=== PATIENT | male | born 1975 | race Caucasian/White ===

== ENCOUNTER 2022-07-21 18:31 | Emergency (ER) | payer OTHER, SELFPAY ==
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
[2022-07-21 18:36] VITALS: BP 134/77; PULSE 93; RESP 18; TEMP 36.5; O2SAT 97
--- NOTE | 2022-07-21 18:46 | PC.NURSE ---
Pt declined visual acuity testing at this time. Reports he cannot see out of his L eye and when he removes this pressure dressing from his head he cannot see out of either eye
== END 2022-07-21 19:07 | disposition home or self-care (01) ==
PROVIDERS: Emergency Provider Nurse Practitioner Family
DX: S05.02XA Injury of conjunctiva and corneal abrasion without foreign body, left eye, initial encounter (principal); X58.XXXA Exposure to other specified factors, initial encounter
CPT/HCPCS: 99213; A9270; G0463

== ENCOUNTER 2022-10-05 21:19 | Emergency (ER) | payer OTHER, SELFPAY ==
[2022-10-05 22:07] VITALS: BP 185/106; PULSE 94; RESP 16; TEMP 36.9; O2SAT 97
[2022-10-06 00:03] VITALS: BP 169/93; PULSE 81; RESP 18; O2SAT 96
--- NOTE | 2022-10-06 01:37 | PC.NURSE ---
0135 pt discovered gone from the waiting room when called back to a room.
== END 2022-10-06 01:35 | disposition left against medical advice (07) ==
DX: M79.89 Other specified soft tissue disorders (principal)
CPT/HCPCS: 99199

== ENCOUNTER 2023-07-01 05:41 | Emergency (ER) | payer OTHER, MEDICAID, SELFPAY ==
[2023-07-01] VITALS (12 sets, daily range): BP systolic 128–156; BP diastolic 76–96; PULSE 76–99; RESP 12–19; TEMP 36.8; O2SAT 93–100
--- NOTE | ~2023-07-01 | US_ITS ---
Duplex Sonography of the bilateral lower extremities: Indication: Swelling Sagittal and transverse B-mode images as well as color-flow imaging were performed on the right and l eft femoral and popliteal veins. B-mode examination was done without and with compression in the tra nsverse plane. There is good visualization of the bilateral common femoral, proximal profunda femora l, superficial femoral, greater saphenous, and popliteal veins. Normal flow was seen on color-flow im aging. Normal compressibility was demonstrated. Bilateral posterior tibial and peroneal veins are al so patent. Impression: No evidence of deep vein thrombosis involving either lower extremity. Reviewed, dictated and finalized at location M. HER Impression: No evidence of deep vein thrombosis involving either lower extremit y.
[2023-07-01 06:14] LABS: Basophils Absolute Auto 0.1 K/mm3 (0.0-0.1); Eosinophils Absolute Auto 0.1 K/mm3 (0-0.3); Eosinophils Percent Auto 2.1 % (0-4.4); Hematocrit 46.3 % (42.0-52.0); Hemoglobin 15.3 g/dL (14.0-18.0); Immature Granulocyte Absolute 0.01 K/mm3 (0.00-0.031); Immature Granulocyte Percent A 0.2 % (0-0.5); Lymphocytes Percent Auto 30.9 % (18.3-44.2); Mean Corpuscular Hemoglobin 30.1 pg (26-34); Mean Corpuscular Volume 91.1 fl (80-100); Mean Platelet Volume 8.7 fl (7.4-10.4); Monocytes Absolute Auto 0.5 K/mm3 (0.1-0.6); Monocytes Percent Auto 8.8 % (2.6-8.5); Neutrophils Absolute Auto 3.5 K/mm3 (1.3-6.7); Platelet Count Result 269 k/mm3 (150-375); Red Blood Count 5.08 M/mm3 (4.6-6.20); White Blood Count 6.1 K/mm3 (4.5-10.0)
[2023-07-01] MEDS: MORPHINE SULFATE (*CRX) 4 MG/ML INJ IV PUSH (06:24)
[2023-07-01 06:28] LABS: Alanine Aminotransferase 32 U/L (6-50); Albumin Level 4.5 g/dL (3.5-5.1); Alkaline Phosphatase 105 U/L (38-126); Anion Gap 10 mmol/L (8-16); Aspartate Amino Transferase 41 U/L (17-59); Bilirubin,Total 0.8 mg/dL (0.2-1.3); Blood Urea Nitrogen 28 mg/dL (9-20); Calcium 9.2 mg/dL (8.4-10.2); Carbon Dioxide 24 mmol/L (22-30); Chloride 106 mmol/L (98-107); Estimated CRCL calculation 95 ml/min; Estimated Glomerular Filt Rate > 60; Glucose 106 mg/dL (65-110); Potassium 3.7 mmol/L (3.4-5.0); Sodium 140 mmol/L (137-145)
[2023-07-01 06:41] LABS: Lactic Acid Reflex 1.4 mmol/L (0.7-2.0)
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
[2023-07-01 07:50] LABS: NT Pro B Type Natriuretic Pept < 20 pg/mL (19.9-100)
[2023-07-01] MEDS: KETOROLAC 15 MG/ML VIAL (*BKC) IV PUSH (08:00)
== END 2023-07-01 08:38 | disposition home or self-care (01) ==
PROVIDERS: Emergency Medicine; Emergency Provider Emergency Medicine
DX: L03.116 Cellulitis of left lower limb (principal); L03.115 Cellulitis of right lower limb
CPT/HCPCS: 36415; 80053; 83605; 83880; 85025; 93970; 96365; 96375; 99284; J0696; J1885; J2270

== ENCOUNTER 2023-08-30 10:18 | Emergency (ER) | payer OTHER, MEDICAID, SELFPAY ==
--- NOTE | ~2023-08-30 | XR_ITS ---
EXAMINATION: XR hand LT min 3V DATE: 08/30/2023 11:34 INDICATION: Left hand middle finger laceration. TECHNIQUE: 3 views of left hand were obtained. COMPARISON: None. FINDINGS: Bone alignment is normal. No fracture. There is mild osteoarthritis of first carpometacarpa l joint. IMPRESSION: 1. No fracture or radiopaque foreign body. Reviewed, dictated and finalized at location A. ER OPERATOR
--- NOTE | 2023-08-30 11:18 | ED.GENADULT ---
HPI - General Adult General Chief complaint: Wound/Laceration Stated complaint: left 3rd finger lac Time Seen by Provider: 08/30/23 11:06 Source: patient Mode of arrival: ambulatory Limitations: no limitations History of Present Illness HPI narrative: This is a 47-year-old male presents to the ED with chief complaint left middle finger laceration that occurred at 0100 last night. Reports he was sharpening knives and Lipitor I walk talking to someone and accidentally cut the dorsum of his left middle finger. Reports the bleeding was well controlled and it seemed approximated so he did not get seen earlier. However the pain is continued. He points make sure there is no foreign body. Denies any numbness, weakness or further sites of pain or injury. Unsure of Tdap status. Related Data Allergies Allergy/AdvReac Type Severity Reaction Status Date / Time No Known Allergies Allergy Verified 08/30/23 11:26 Review of Systems Review of Systems: All systems as dictated in HPI Exam Narrative: GENERAL: Well-appearing, well-nourished, and in no acute distress. HEAD: Normocephalic, atraumatic. EYES: PERRLA and EOMI. ENT: Nares clear, no rhinorrhea or epistaxis. Mucous membranes moist. Oropharynx without tonsillar hypertrophy exudate or other lesions. NECK: Supple. No adenopathy or masses. CHEST: No respiratory distress. Clear to auscultation. No wheezes rales or rhonchi HEART: Regular rate and rhythm. No murmur heard. Normal peripheral pulses. ABDOMEN: Soft, nontender, nondistended, normal active bowel sounds. MSK: Normal range of motion. No edema. Full range of motion of bilateral hands. Full extension of the left middle finger. Neurovascularly intact distally. Good cap refill SKIN: Very well approximated 2 cm laceration to the dorsum of the left middle finger. It appears to be healing at this point. NEURO: Alert and oriented x3. No focal deficits. PSYCH: Normal mood and affect. Medical Decision Making MDM Narrative Medical decision making narrative: This is a 47-year-old male who presents to the ED with chief complaint of the left middle finger laceration that occurred around 1:00 a.m. this morning. Vitals are normal. Exam shows a healing well-approximated superficial laceration to the left dorsal middle finger. This occurred almost 12 hours prior. No need for any sutures today. The area was cleansed here in the department. Tdap updated. Will prescribe prophylactic antibiotic course. Pt will be discharged in stable condition. Return precautions given and supportive measures discussed. Pt is understanding and agreeable with plan for discharge and follow-up with PCP. Discharge Plan Discharge Clinical Impression: Laceration Patient Disposition: Home, Self-Care Condition: Stable Instructions: Antibiotic Form, Laceration (ED) Additional Instructions: Your exam and imaging today are reassuring. No evidence of any broken bone or foreign body. The wound was well approximated already. We were able to just place skin glue. Please keep an eye on the area. Take preventive antibiotics. If you have any new or worsening symptoms please return to the ER for further evaluation Prescriptions: New cephalexin 500 mg capsule 500 mg PO Q8H Qty: 9 0RF Follow-up/Referrals: UNKNOWN,DOCTOR [Primary Care Provider] - Time of Disposition: 12:09
[2023-08-30] MEDS: TETANUS,DIPHTHERIA,AC PERTUSSIS ADULT (0.5 ML) BOOSTRIX IM (11:23)
== END 2023-08-30 12:19 | disposition home or self-care (01) ==
PROVIDERS: Emergency Provider Physician Assistant
DX: S61.213A Laceration without foreign body of left middle finger without damage to nail, initial encounter (principal); W26.0XXA Contact with knife, initial encounter; Z23 Encounter for immunization
CPT/HCPCS: 73130; 90471; 90715; 99283